=== PATIENT | female | born 1960 | race Caucasian/White ===

== ENCOUNTER 2024-03-16 06:18 | Day surgery (SDC) | payer BC, SELFPAY ==
[2024-03-16] VITALS (8 sets, daily range): BP systolic 104–124; BP diastolic 52–77; BMI 30.4
[2024-03-16] MEDS: TYLENOL 1000 MG PO (14:19)
[2024-03-16] MEDS: CELEBREX 200 MG PO (14:19)
[2024-03-16] MEDS: NORMOSOL-R/PLASMALYTE-A 1000 IV (14:31)
[2024-03-16] MEDS: ZOFRAN 4 MG IV (21:08)
== END 2024-03-16 21:25 | disposition home or self-care (01) ==
LOC: SDS 06:18
PROVIDERS: ATTENDING PHYSICIAN Student in an Organized Health Care Education/Training Program
PROC: 0SGH04Z Fusion of Right Tarsal Joint with Internal Fixation Device, Open Approach (ICD-10-PCS; 2024-03-16)
DX: S92.251A Displaced fracture of navicular [scaphoid] of right foot, initial encounter for closed fracture (principal); X58.XXXA Exposure to other specified factors, initial encounter; M19.171 Post-traumatic osteoarthritis, right ankle and foot
CPT/HCPCS: 28740; 73630; 76000

== ENCOUNTER → 2024-11-08 09:52 | Outpatient (REF) | payer BC, SELFPAY | LOC: RAD 09:52 | PROVIDERS: ATTENDING PHYSICIAN Student in an Organized Health Care Education/Training Program; FAMILY PHYSICIAN Internal Medicine | DX: M79.671 Pain in right foot (principal) | CPT/HCPCS: 73700 ==

== ENCOUNTER 2024-11-29 06:21 | Day surgery (SDC) | payer BC, SELFPAY ==
[2024-11-17 09:25] LABS: Hematocrit 37.2 % (37.0-47.0); Hemoglobin 12.4 g/dL (12.0-16.0); Mean Corp Hgb Conc. 33.3 g/dL (33.0-37.0); Mean Corpuscular Volume 92.5 fL (81.0-99.0); Platelet Count 288 10^3/uL (130-400); Red Cell Dist. Width 12.9 % (11.5-14.5)
[2024-11-17 10:22] LABS: Blood Urea Nitrogen 16 mg/dl (7-17); Calcium 9.5 mg/dl (8.4-10.2); Carbon Dioxide 26 mmol/L (22-30); Chloride 109 mmol/L (98-107); Glucose 91 mg/dl (70-99); Potassium 3.9 mmol/L (3.5-5.1); Sodium 140 mmol/L (135-145); eGFR > 60.00
[2024-11-17 13:45] VITALS: BMI 29.2
[2024-11-29] VITALS (11 sets, daily range): BP systolic 93–129; BP diastolic 59–76; BMI 29.2
[2024-11-29] MEDS: TYLENOL 1000 MG PO (08:25)
[2024-11-29] MEDS: NORMOSOL-R/PLASMALYTE-A 1000 IV (08:25)
[2024-11-29] MEDS: CELEBREX 200 MG PO (08:25)
--- NOTE | 2024-11-30 06:42 | OR.RPT ---
Operative Report
Operative Report
Operative Report
Patient:�Anai Palm
MRN:�[id number]
Date of Surgery:�11/29/2024
Surgeon:�Jaden Patterson DPM
Wrapping Machine Tender:�Jaden Parker DPM
Preoperative Diagnosis:
Painful orthopedic hardware, right foot
Postoperative Diagnosis:
Same
Procedure Performed:
Removal of deep hardware CPT 88872 x 2
Anesthesia:
General with local infiltration of 20ccs of 0.5% bupivacaine plain
Hemostasis:
Thigh tourniquet which remained inflated at 300mmHg for the entirety of the procedure
Estimated Blood Loss:
Minimal
Complications:
None
Specimens:
None
Implants Removed:
Two (2) Mejia EasyFuse geovany (one intact, one broken)
One (1) 4.0 mm [place] screw
One (1) 5.0 mm Mejia screw
Indications for Procedure:
The patient is a 64-year-old female who previously underwent right talonavicular joint arthrodesis approximately eight months ago for degenerative joint disease and an acute injury. She had recovered well, demonstrating solid fusion and excellent
function; however, she began experiencing focal pain and irritation over the medial midfoot. Radiographs revealed one of the fixation geovany had fractured, with the limbs displaced and palpable beneath the skin. Given the solid fusion and
symptomatic hardware, the decision was made to proceed with elective removal of the painful hardware. Risks, benefits, and alternatives were discussed in detail, and informed consent was obtained.
Procedure in Detail:
The patient was brought to the operating room and placed supine on the operating table. Following induction of general anesthesia, the right lower extremity was prepped and draped in the usual sterile fashion. A pneumatic thigh tourniquet was
applied and inflated after exsanguination with an Esmarch bandage.
A curvilinear incision was made over the medial aspect of the right midfoot, centered over the previous talonavicular arthrodesis incision. Dissection was carried carefully through the subcutaneous tissues using sharp and blunt technique. The
capsule and periosteal tissues were identified and incised to expose the underlying hardware.
The previously placed [place] EasyFuse geovany were identified. One staple was intact and easily visualized; the second staple was fractured, with the central bridge fragment prominent beneath the cortex. The intact staple was removed in its
entirety using appropriate extraction instrumentation. The broken staple was exposed the removed without difficulty. The remaining two prongs were found to be deeply embedded within fused bone and were left in situ, as removal would have required
excessive bone resection and risk to the fusion site. These were well buried and stable.
Attention was then directed to the previously placed 5.0mm [place] screw which was removed in its entirety.
Attention was then directly laterally, where a 4.0mm [place] screw was placed percutaneously. A separate 2cm longitudinal incision was made and blunt dissection was carried through subcutaneous tissues, with all neurovascular structures remaining
intact. The 4.0mm screw was then re-cannulated and removed in its entirety. Fluoroscopy confirmed complete removal of all hardware except for the two retained staple prongs.
Inspection of the underlying talonavicular joint demonstrated solid osseous fusion across the arthrodesis site with no evidence of motion or pseudoarthrosis. The site was copiously irrigated with sterile saline.
The periosteum and capsule were re-approximated with 2-0 Vicryl. The subcutaneous tissues were closed with 3-0 Vicryl, and the skin was reapproximated with interrupted 3-0 prolene sutures. A sterile dressing was applied, and the limb was placed into
a soft compressive dressing. The tourniquet was deflated, and prompt hyperemia was noted to all digits. The patient tolerated the procedure well and was transferred to the recovery room in stable condition. She will follow up in the office in 2
weeks for an incision check.
== END 2024-11-29 13:05 | disposition home or self-care (01) ==
LOC: SDS 06:21
PROVIDERS: ATTENDING PHYSICIAN Student in an Organized Health Care Education/Training Program; FAMILY PHYSICIAN Internal Medicine
DX: T84.84XA Pain due to internal orthopedic prosthetic devices, implants and grafts, initial encounter (principal); Y83.1 Surgical operation with implant of artificial internal device as the cause of abnormal reaction of the patient, or of later complication, without mention of misadventure at the time of the procedure; Z98.890 Other specified postprocedural states
CPT/HCPCS: 20680; 36415; 80048; 85027; 93005